=== PATIENT | male | born 1985 | race Caucasian/White ===

== ENCOUNTER 2019-08-24 10:07 | Emergency (ER) | payer BC, OTHER ==
[~2019-08-24] VITALS: Ht 172.7 cm; Wt 119.9 kg
[2019-08-24 10:13] VITALS: BP 132/69
--- NOTE | 2019-08-24 12:06 | NUR ---
PATIENT SIGNED AMA WITH REGISTRATION
== END 2019-08-24 12:08 | disposition left against medical advice (07) ==
LOC: ED 11:59
DX: R42 Dizziness and giddiness (principal); R11.0 Nausea; Z53.21 Procedure and treatment not carried out due to patient leaving prior to being seen by health care provider
CPT/HCPCS: 93005